=== PATIENT | male | born 1980 | race Caucasian/White ===

== ENCOUNTER 2016-12-25 19:48 | Emergency (ER) | payer OTHER ==
[~2016-12-25] VITALS: Ht 177.8 cm; Wt 112.6 kg
[2016-12-25 20:11] LABS: HEMATOCRIT 44.3 % (38.0-50.0); MCH 28.3 PG (29.0-34.0); MCHC 33.6 G/DL (30.0-36.0); MCV 84.1 FL (86-99); MEAN PLAT.VOLUME 9.6 uM^3 (9.0-12.4); PLATELET COUNT 271 K/uL (156-360); RBC DIS.WIDTH-CV 12.6 % (11.8-14.6); RBC DIS.WIDTH-SD 37.6 % (39-53); RED BLOOD COUNT 5.27 M/uL (4.00-5.50); WHITE BLOOD COUNT 10.6 K/uL (4.1-10.2)
[2016-12-25 20:19] LABS: CHLORIDE 109 mEq/L (99-109); POTASSIUM 3.8 mEq/L (3.7-5.4); SODIUM 140 mEq/L (136-147)
[2016-12-25 20:20] LABS: GLUCOSE 113 mg/dL (70-99)
[2016-12-25 20:22] LABS: ANION GAP 8 MEQ/L (2-14)
[2016-12-25 20:24] LABS: GFR ESTIMATE (CALCULATED) > 59 mL/min/
[2016-12-25 20:25] LABS: UREA NITROGEN (BUN) 15 mg/dL (9-23)
[2016-12-25 20:32] LABS: TROP-I INTERPRETATION NEGATIVE; TROPONIN-I < 0.01 ng/mL (0.0-0.30)
[2016-12-25] MEDS ORDERED: ROBITUSSIN AC,T10 ML PO (21:57)
[2016-12-25] MEDS ORDERED: ZITHROMAX250 MG PO (21:57)
[2016-12-25] MEDS ORDERED: PREDNISONE20 MG PO (21:59)
[2016-12-25 22:48] VITALS: BP 127/68
== END 2016-12-25 22:49 | disposition home or self-care (01) ==
LOC: EME 19:48
DX: J18.0 Bronchopneumonia, unspecified organism (principal); F17.200 Nicotine dependence, unspecified, uncomplicated
CPT/HCPCS: 71020; 80048; 84484; 85027; 93005; 94640; 99281; 99283; J7512

== ENCOUNTER 2017-07-02 16:12 | Emergency (ER) | payer OTHER ==
[~2017-07-02] VITALS: Ht 177.8 cm; Wt 110.6 kg
[~2017-07-02 16:12] MED LIST: PREDNISONE20 MG PO; ROBITUSSIN AC,T10 ML PO; ZITHROMAX250 MG PO
[2017-07-02 18:07] LABS: BASOPHIL (%) 0.6 % (0-1); BASOPHIL COUNT 0.1 K/uL (0-0.1); EOSINOPHIL (%) 5.3 % (0-5); EOSINOPHIL COUNT 0.7 K/uL (0-0.3); HEMATOCRIT 45.3 % (38.0-50.0); HEMOGLOBIN 15.9 G/DL (12.5-16.6); IMMATURE GRANULOCYTE (%) 0.7 % (0.0-0.7); LYMPHOCYTE (%) 17.2 % (15-42); LYMPHOCYTE COUNT 2.1 K/uL (1.0-2.8); MCH 29.3 PG (29.0-34.0); MCHC 35.1 G/DL (30.0-36.0); MCV 83.6 FL (86-99); MONOCYTE (%) 7.3 % (3-12); MONOCYTE COUNT 0.9 K/uL (0-0.8); NEUTROPHIL (%) 68.9 % (45-76); NEUTROPHIL COUNT 8.4 K/uL (1.8-6.4); NRBC (%) 0.2 /100 WBC (0-0); PLATELET COUNT 221 K/uL (156-360); RBC DIS.WIDTH-CV 12.9 % (11.8-14.6); RED BLOOD COUNT 5.42 M/uL (4.00-5.50); WHITE BLOOD COUNT 12.2 K/uL (4.1-10.2)
[2017-07-02 18:18] LABS: CHLORIDE 105 mEq/L (99-109); POTASSIUM 4.6 mEq/L (3.7-5.4); SODIUM 137 mEq/L (136-147)
[2017-07-02 18:19] LABS: GLUCOSE 83 mg/dL (70-99)
[2017-07-02 18:23] LABS: CREATININE 1.2 mg/dL (0.6-1.3); GFR ESTIMATE (CALCULATED) > 59 mL/min/ (58.99-99999)
[2017-07-02 18:24] LABS: UREA NITROGEN (BUN) 14 mg/dL (9-23)
[2017-07-02 20:26] VITALS: BP 121/83
[2017-07-03] MEDS ORDERED: MOTRIN IB200 MG PO (15:52)
== END 2017-07-02 20:26 | disposition home or self-care (01) ==
LOC: EME 16:12
PROC: 0H90XZZ Drainage of Scalp Skin, External Approach (ICD-10-PCS; principal; 2017-07-02)
DX: L02.811 Cutaneous abscess of head [any part, except face] (principal); L02.215 Cutaneous abscess of perineum; M79.89 Other specified soft tissue disorders; F17.200 Nicotine dependence, unspecified, uncomplicated
CPT/HCPCS: 71046; 80048; 81003; 83605; 85025; 87070; 87075; 87077; 87147; 87186; 87205; 93971; 99281; 99284; J0696